=== PATIENT | male | born 1970 | race Caucasian/White ===

== ENCOUNTER 2018-12-03 11:45 | Emergency (ER) | payer BC ==
[2018-12-03 11:50] VITALS: BP 131/78
--- NOTE | 2018-12-03 12:04 | ED Physician Documentation ---
PD HPI GI BLEED - Stated complaint Stated Complaint: MALE - Chief complaint Chief Complaint: Abd Pain - History obtained from History obtained from: Patient - History of Present Illness Timing - onset: How many days ago (about 5-6) Timing - duration: Days (he had laparoscopic hernia surgery umbilical and inguinal 3 weeks ago and is healing wounds well. He says he did not have BM for 5 days post op and then had large one and has continued with soft stools, not diarrhea. He noted about 5-6 days ago, having some bright red blood with wiping after firm BM. He has noted red blood around stool in bowl since and also on TP with wiping. No dark blood nor clots. No rectal pain with BM. No abd pain.) Timing - details: Abrupt onset, Intermittant Associated symptoms: BRBPR (with BMs.) Contributing factors: No: Sick contact, Bad food, Recent antibiotics, NSAID use Similar symptoms before: Has not had sx before Recently seen: Surgery (3 weeks ago, laparoscopic umbilical and inguinal hernia surgery.) Review of Systems Constitutional: denies: Fever, Chills Nose: denies: Rhinorrhea / runny nose, Congestion Throat: denies: Sore throat Respiratory: denies: Cough GI: denies: Abdominal Pain, Nausea, Vomiting, Constipation (stool is soft, but not watery.), Diarrhea Neurologic: denies: Generalized weakness, Near syncope PD PAST MEDICAL HISTORY - Past Medical History Past Medical History: No - Present Medications Home Medications: Ambulatory Orders Medication Instructions Recorded Confirmed Hydrocortisone Acetate [Anucort-Hc] 25 mg RC BID #10 supp.rect 12/03/18 - Allergies Allergies/Adverse Reactions: Allergies Allergy/AdvReac Type Severity Reaction Status Date / Time No Known Drug Allergies Allergy Verified 12/03/18 11:50 PD ED PE NORMAL - Vitals Vital signs reviewed: Yes - General General: Alert and oriented X 3, No acute distress, Well developed/nourished - Cardiac Cardiac: RRR, No murmur - Respiratory Respiratory: Clear bilaterally - Abdomen Abdomen: Normal bowel sounds, Soft, Non tender, Non distended, No organomegaly, Other (well healing abd scope wounds without signs of infection. ) - Male Male : Deferred - Rectal Rectal: Other (external is normal. Digitial exam with small mildly tender lump c/w internal hemorrhoid. No bleeding right now. Stool guiac negative and brown. ) - Back Back: No CVA TTP, No spinal TTP - Derm Derm: Normal color, Warm and dry - Neuro Neuro: Alert and oriented X 3, No motor deficit, Normal speech Results - Vitals Vitals: Vital Signs - 24 hr 12/03/18 11:49 Temperature 36.3 C L Heart Rate 64 Respiratory 19 Rate Blood Pressure 131/78 H O2 Saturation 99 Oxygen O2 Source Room air - Labs Labs: Laboratory Tests 12/03/18 12:37 WBC 5.4 RBC 4.56 L Hgb 14.2 Hct 42.4 MCV 93.0 MCH 31.1 H MCHC 33.5 RDW 12.4 Plt Count 209 MPV 9.4 Neut # (Auto) 3.0 Lymph # (Auto) 1.5 [place] # (Auto) 0.6 Eos # (Auto) 0.2 Baso # (Auto) 0.1 Absolute Nucleated RBC 0.00 Nucleated RBC % 0.0 PD MEDICAL DECISION MAKING - ED course Complexity details: reviewed results, considered differential (likely hemorrhoids given the history and exam c/w this. If persists, then to f/u with his surgery for potential sigmoidoscopy or colonoscopy. ) Departure - Departure Disposition: 01 Home, Self Care Clinical Impression: Lower GI bleed, Hemorrhoids, internal Condition: Stable Record reviewed to determine appropriate education?: Yes Instructions: ED Hemorrhoids Prescriptions: Hydrocortisone Acetate [Anucort-Hc] 25 mg RC BID #10 supp.rect Comments: Your blood count is good without any signs of anemia. Your white count is normal on the blood count so no signifying infection. On exam it does feel like you have an internal hemorrhoid. I presume this is the cause of the bleeding. Use the Anusol suppositories twice daily for 5 days to reduce inflammation. Keep soft stool and so if you have any firming of the stool, take a mild stool softener such as docusate. The bleeding should taper down and stop over the next few days. Follow-up with your surgeon if it does not improve over the next several days and they could potentially do a sigmoidoscope or (a visual check in the rectum and lower i ntestine). Discharge Date/Time: 12/03/18 13:00
[2018-12-03] MEDS ORDERED: HYDROCORTISONE 25 MG SUPPOSITORY PR STA (12:27)
[2018-12-03 12:44] LABS: BASOPHILS # (AUTO) 0.1 10^3/uL (0.0-0.1); BASOPHILS % (AUTO) 0.9 %; EOSINOPHILS # (AUTO) 0.2 10^3/uL (0.0-0.7); EOSINOPHILS % (AUTO) 3.5 %; HGB - HEMOGLOBIN 14.2 g/dL (14.0-18.0); LYMPHOCYTES # (AUTO) 1.5 10^3/uL (1.5-3.5); LYMPHOCYTES % (AUTO) 28.2 %; MEAN CORPUSCULAR HEMOGLOBIN 31.1 pg (27.0-31.0); MEAN CORPUSCULAR HGB CONC 33.5 g/dL (32.0-36.0); MEAN PLATELET VOLUME 9.4 fL (7.4-11.4); MONOCYTES # (AUTO) 0.6 10^3/uL (0.0-1.0); MONOCYTES % (AUTO) 11.8 %; NEUTROPHILS % (AUTO) 55.2 %; PLT - PLATELET COUNT 209 10^3/uL (130-450); RED BLOOD COUNT 4.56 10^6/uL (4.70-6.10); RED CELL DISTRIBUTION WIDTH 12.4 % (12.0-15.0); WHITE BLOOD COUNT 5.4 x10^3/uL (4.8-10.8)
== END 2018-12-03 13:00 | disposition home or self-care (01) ==
LOC: ED 11:45
DX: K64.8 Other hemorrhoids (principal); K62.5 Hemorrhage of anus and rectum
CPT/HCPCS: 36415; 85025; 99283; 99284; J3490

== ENCOUNTER 2022-09-20 10:10 | Emergency (ER) | payer BC ==
[2022-09-20 10:48] VITALS: BP 139/96
[2022-09-20 10:56] LABS: GLUCOSE, URINE (UA) NEGATIVE (NEGATIVE); KETONES,URINE (UA) 15 mg/dL (NEGATIVE); LEUKOCYTE ESTERASE, URINE NEGATIVE (NEGATIVE); NITRITE,URINE NEGATIVE (NEGATIVE); OCCULT BLOOD,URINE LARGE (NEGATIVE); PH,URINE 5.5 PH (5.0-7.5); PROTEIN,URINE 30 mg/dL (NEGATIVE); UROBILINOGEN,URINE 0.2 (NORMAL) E.U./dL (NORMAL)
[2022-09-20 10:57] LABS: CLARITY,URINE CLEAR (CLEAR)
[2022-09-20 11:00] LABS: BILIRUBIN,URINE NEGATIVE (NEGATIVE); ICTOTEST,URINE NEGATIVE
[2022-09-20 11:20] LABS: BASOPHILS # (AUTO) 0.1 10^3/uL (0.0-0.1); BASOPHILS % (AUTO) 0.6 %; EOSINOPHILS # (AUTO) 0.1 10^3/uL (0.0-0.7); EOSINOPHILS % (AUTO) 0.9 %; HCT - HEMATOCRIT 43.7 % (42.0-52.0); LYMPHOCYTES # (AUTO) 0.8 10^3/uL (1.5-3.5); LYMPHOCYTES % (AUTO) 9.3 %; MEAN CORPUSCULAR HEMOGLOBIN 32.1 pg (27.0-31.0); MEAN CORPUSCULAR HGB CONC 34.3 g/dL (32.0-36.0); MEAN CORPUSCULAR VOLUME 93.6 fL (80.0-94.0); MEAN PLATELET VOLUME 9.6 fL (7.4-11.4); MONOCYTES # (AUTO) 1.1 10^3/uL (0.0-1.0); MONOCYTES % (AUTO) 12.5 %; NEUTROPHILS # (AUTO) 6.6 10^3/uL (1.5-6.6); NEUTROPHILS % (AUTO) 76.5 %; PLT - PLATELET COUNT 159 10^3/uL (130-450); RED BLOOD COUNT 4.67 10^6/uL (4.70-6.10); RED CELL DISTRIBUTION WIDTH 11.5 % (12.0-15.0); WHITE BLOOD COUNT 8.6 x10^3/uL (4.8-10.8)
[2022-09-20 11:24] LABS: BACTERIA,URINE Moderate /HPF (None Seen); CASTS, URINE 0-2 Fine Granular /LPF; RBC,URINE 0-5 /HPF (0-5); SQUAMOUS EPITHELIAL CELL,UR RARE Squamous (<= Few)
[2022-09-20 11:51] LABS: ALBUMIN 4.5 g/dL (3.2-5.5); ALBUMIN/GLOBULIN RATIO 1.2 (1.0-2.2); BILIRUBIN,TOTAL 2.3 mg/dL (0.2-1.0); CREATININE 1.2 mg/dL (0.6-1.2); TOTAL PROTEIN 8.3 g/dL (6.7-8.2)
[2022-09-20] MEDS ORDERED: KETOROLAC 30 MG/ML VIAL IVP STA (12:00)
[2022-09-20] MEDS ORDERED: HYDROmorphone 1 MG/ML CARPUJECT IVP STA (12:00)
[2022-09-20] MEDS ORDERED: ONDANSETRON 4 MG/2 ML VIAL IVP STA (12:00)
[2022-09-20] MEDS ORDERED: SODIUM CHLORIDE 0.9% 1,000 ML IV STA (12:00)
--- NOTE | 2022-09-20 12:48 | ED Physician Documentation ---
History of Present Illness - Stated complaint Stated Complaint: RT FLANK PAIN - Chief complaint Chief Complaint: Abd Pain - History obtained from History obtained from: Patient - Additonal information Additional information: Patient comes to the emergency department chief complaint of right flank pain that started yesterday. He has a history of kidney stones and states this feels the same. He states the pain has waxed and waned. He did take several half tablets of Vicodin throughout the night and this morning, but then began to vomit. He states his pain is not that well controlled with like in any way. The patient has never had to have lithotripsy. He is from [place] and here visiting his mother. He has some tamsulosin which he has not yet taken. No other complaints at this time. PD PAST MEDICAL HISTORY - Past Medical History Past Medical History: Yes Cardiovascular: High cholesterol Respiratory: None Neuro: None Endocrine/Autoimmune: None GI: None : None HEENT: None Psych: Depression, Anxiety Musculoskeletal: None Derm: None - Past Surgical History Past Surgical History: No General: Colonoscopy, Other - Present Medications Home Medications: Ambulatory Orders Medication Instructions Recorded Confirmed Atorvastatin [Lipitor] 20 mg ORAL DAILY 09/20/22 09/20/22 HYDROcod/ACETAM 5/325 [[place] 5/325] 1 tablet PO Q6H PRN 09/20/22 09/20/22 Ondansetron Odt [Zofran] 4 mg TL Q6H PRN #10 tablet 09/20/22 Oxycodone HCl/Acetaminophen 1 - 2 tab PO Q4H PRN #15 tablet 09/20/22 [Percocet 5-325 mg Tablet] Sertraline [Zoloft] 25 mg PO DAILY 09/20/22 09/20/22 Tamsulosin [Flomax] 0.4 mg PO DAILY 09/20/22 09/20/22 - Allergies Allergies/Adverse Reactions: Allergies Allergy/AdvReac Type Severity Reaction Status Date / Time No Known Drug Allergies Allergy Verified 09/20/22 10:27 - Social History Does the pt smoke?: No Smoking Status: Never smoker Does the pt drink ETOH?: Yes Does the pt have substance abuse?: Yes Substance Use and Type: Marijuana - Immunizations Immunizations are current?: Yes - POLST Patient has POLST: No PD ED PE NORMAL - Vitals Vital signs reviewed: Yes - General General: Alert and oriented X 3, Well developed/nourished, Other (The patient appears moderately uncomfortable, but otherwise in no apparent distress.) - HEENT HEENT: Atraumatic, PERRL, EOMI, Moist mucous membranes - Neck Neck: Supple, no meningeal sign - Cardiac Cardiac: RRR, No murmur - Respiratory Respiratory: No respiratory distress, Clear bilaterally - Abdomen Abdomen: Soft, Non tender, Non distended - Derm Derm: Normal color, Warm and dry, No rash - Extremities Extremities: No deformity, No edema - Neuro Neuro: Alert and oriented X 3, Other (Grossly intact) - Psych Psych: Normal mood, Normal affect Results - Vitals Vitals: Vital Signs - 24 hr 09/20/22 10:28 Temperature 37.1 C Heart Rate 77 Respiratory 18 Rate Blood Pressure 139/96 H O2 Saturation 100 Oxygen O2 Source Room air - Labs Labs: Laboratory Tests 09/20/22 09/20/22 09/20/22 10:40 11:05 11:05 WBC 8.6 RBC 4.67 L Hgb 15.0 Hct 43.7 MCV 93.6 MCH 32.1 H MCHC 34.3 RDW 11.5 L Plt Count 159 MPV 9.6 Neut # (Auto) 6.6 Lymph # (Auto) 0.8 L [place] # (Auto) 1.1 H Eos # (Auto) 0.1 Baso # (Auto) 0.1 Absolute Nucleated RBC 0.00 Nucleated RBC % 0.0 Sodium 132 L Potassium 4.0 Chloride 94 L Carbon Dioxide 26 Anion Gap 12.0 BUN 19 Creatinine 1.2 Estimated GFR (MDRD) 64 L Glucose 148 H Calcium 9.0 Total Bilirubin 2.3 H AST 51 H ALT 60 Alkaline Phosphatase 49 Total Protein 8.3 H Albumin 4.5 Globulin 3.8 Albumin/Globulin Ratio 1.2 Lipase 28 Urine Color DARK YELLOW Urine Clarity CLEAR Urine pH 5.5 Ur Specific [place] >=1.030 H Urine Protein 30 H Urine Glucose (UA) NEGATIVE Urine Ketones 15 H Urine Occult Blood LARGE H Urine Nitrite NEGATIVE Urine Bilirubin NEGATIVE Urine Urobilinogen 0.2 (NORMAL) Ur Leukocyte Esterase NEGATIVE Urine RBC 0-5 Urine WBC 11-25 H Ur Squamous Epith Cells RARE Squamous Urine Bacteria Moderate H Urine Casts 0-2 Fine Granular Ur Microscopic Review INDICATED Urine Culture Comments INDICATED PD Medical Decision Making - ED course Complexity details: reviewed results, re-evaluated patient, considered differential, d/w patient ED course: The patient was treated symptomatically with IV fluids, Toradol, Zofran, and Dilaudid. His urinalysis showed blood. He was sent for CT scan of the abdomen and pelvis without contrast, which showed a 4 mm stone in the right ureter. The patient is feeling much better on reevaluation. We have discussed symptomatic management at home as well as the usual indications for follow-up and return. Departure - Departure Disposition: 01 Home, Self Care Clinical Impression: Kidney stone on right side Condition: Stable Instructions: ED Stone Renal W Colic Prescriptions: Oxycodone HCl/Acetaminophen [Percocet 5-325 mg Tablet] 1 - 2 tab PO Q4H PRN #15 tablet PRN Reason: Pain 5-7 Ondansetron Odt [Zofran] 4 mg TL Q6H PRN #10 tablet PRN Reason: Nausea / Vomiting Comments: Your CT scan shows a stone in the right ureter. You have some blood in your urine as well. At this point in time, you will need to drink plenty of fluids and take your tamsulosin to help encourage passage of the stone. Prescriptions for pain and nausea medicine have been electronically transmitted to the [facility] pharmacy in [place] at your request. Please call and make an appointment with your urologist in [place] for when you get back home. Discharge Date/Time: 09/20/22 13:35
--- NOTE | 2022-09-20 13:02 | CT Report ---
PROCEDURE: ABDOMEN/PELVIS WO INDICATIONS: R flank pain, hematuria, kidney stone hx TECHNIQUE: A CT scan of the abdomen and pelvis was performed without the use of intravenous contrast. Images we re recorded and evaluated at appropriate window settings. Reformats: coronal and sagittal. For radiat ion dose reduction, the following was used: automated exposure control, adjustment of mA and/or kV ac cording to patient size. COMPARISON: None. FINDINGS: Image quality: Excellent. Lung bases and heart: Unremarkable. Liver: No solid mass. Gallbladder and biliary tree: Spleen: No splenomegaly. Pancreas: No pancreatic ductal dilation. Adrenals: No adrenal nodule. Kidneys and ureters: 3 mm calculus in the right mid ureter with moderate right hydronephrosis. The left kidney is normal. Bowel and peritoneum: No bowel distension. No pathologic free fluid. Lymph nodes: No central or retroperitoneal adenopathy. Vessels: No infrarenal aortic aneurysm. PELVIS Reproductive organs: Unremarkable. Bladder: No wall thickness, accounting for underdistention. Pelvic lymph nodes: No pelvic adenopathy by size criteria. Bones: No aggressive osseous abnormality. Other: No significant ventral or inguinal hernia. IMPRESSION: Right mid ureteral nephrolithiasis causing moderate right hydronephrosis. Reviewed by: Pascual Schaefer on 09/20/2022 12:00 PM SHREYA Approved by: Pascual Schaefer on 09/20/2022 12:00 PM SHREYA Station ID: [id number]
== END 2022-09-20 13:35 | disposition home or self-care (01) ==
LOC: ED 10:10
DX: N20.0 Calculus of kidney (principal); Z87.442 Personal history of urinary calculi; E78.00 Pure hypercholesterolemia, unspecified; Z79.899 Other long term (current) drug therapy
CPT/HCPCS: 36415; 74176; 80053; 81001; 83690; 85025; 87086; 96374; 99284; J1170; 81003